=== PATIENT | male | born 1995 | race Caucasian/White ===

== ENCOUNTER 2020-09-17 09:57 | Emergency (ER) | payer OTHER ==
[2020-09-17] MEDS ORDERED: SODIUM CHLORIDE 0.9% 1,000 ML IV STA (10:10)
[2020-09-17] MEDS ORDERED: KETOROLAC 30 MG/ML VIAL IVP STA (10:10)
[2020-09-17] MEDS ORDERED: diphenhydrAMINE INJ 50 MG/ML VIAL IVP STA (10:11)
[2020-09-17] MEDS ORDERED: DEXAMETHASONE 10 MG/ML VIAL IVP STA (10:11)
[2020-09-17] MEDS ORDERED: PROCHLORPERAZINE 10 MG/2 ML VIAL IVP STA (10:11)
--- NOTE | 2020-09-17 10:13 | ED Physician Documentation ---
PD HPI HEADACHE - Stated complaint Stated Complaint: MIGRAINE,BLURRY VISION,NECK PX - Chief complaint Chief Complaint: Neuro - History obtained from History obtained from: Patient - History of Present Illness Timing - onset: Enter time (99), Today Timing - onset during: Rest Timing - duration: Hours Timing - details: Abrupt onset, Still present Worst headache ever?: No: Worst headache ever? Location: Global Quality: Throbbing Associated symptoms: Stiff neck, Nausea, Vomiting, Vision changes. No: Fever, Weakness, Numbness, Syncope, Seizure, Eye pain Improved by: Rest, Dark room, Quiet, Meds Worsened by: Light, Noise Contributing factors: No: Anticoagulated Similar symptoms before: Diagnosis (migraine) Recently seen: Not recently seen - Additional information Additional information: 25-year-old male who has been having some difficulty with migraine recurrent has not had good relief with the use of sumatriptan and and he has not had good relief with the use of topiramate for suppression nor has propranolol seem to help. He has developed nausea and vomiting with this he did have some visual changes. He indicates he is getting headaches about daily and they are not usually this bad. He has developed some vomiting with this he is coming now for treatment. He has had 2 prior migraines treated in the emergency department prior to his diagnosis several years ago. Review of Systems Constitutional: denies: Fever, Chills, Myalgias Eyes: denies: Decreased vision Ears: denies: Ear pain Nose: denies: Rhinorrhea / runny nose, Congestion Throat: denies: Sore throat Cardiac: denies: Chest pain / pressure, Palpitations Respiratory: denies: Dyspnea, Cough GI: reports: Nausea, Vomiting. denies: Abdominal Pain, Constipation, Diarrhea : denies: Dysuria, Frequency Skin: denies: Rash Musculoskeletal: reports: Neck pain. denies: Back pain, Extremity pain Neurologic: reports: Headache. denies: Generalized weakness, Focal weakness, Numbness, Syncope, Seizure, Confused, Altered mental status, Head injury, LOC PD PAST MEDICAL HISTORY - Past Surgical History Past Surgical History: Yes General: Appendectomy - Present Medications Home Medications: Ambulatory Orders Medication Instructions Recorded Confirmed Propranolol [Inderal] 40 mg PO DAILY 09/17/20 09/17/20 - Allergies Allergies/Adverse Reactions: Allergies Allergy/AdvReac Type Severity Reaction Status Date / Time shrimp Allergy Unknown Verified 09/17/20 10:03 - Social History Does the pt smoke?: No Smoking Status: Never smoker Does the pt drink ETOH?: No Does the pt have substance abuse?: No - Immunizations Immunizations are current?: Yes - POLST Patient has POLST: No PD ED PE NORMAL - Vitals Vital signs reviewed: Yes (hypertensive ) - General General: Alert and oriented X 3, No acute distress, Well developed/nourished - HEENT HEENT: Atraumatic, PERRL, EOMI - Neck Neck: Supple, no meningeal sign, No bony TTP - Cardiac Cardiac: RRR, No murmur - Respiratory Respiratory: No respiratory distress, Clear bilaterally - Abdomen Abdomen: Soft, Non tender - Back Back: No CVA TTP, No spinal TTP - Derm Derm: Normal color, Warm and dry, No rash - Extremities Extremities: No deformity, No edema - Neuro Neuro: Alert and oriented X 3, 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, No motor deficit, No sensory deficit, Normal speech Eye Opening: Spontaneous Motor: Obeys Commands Verbal: Oriented GCS Score: 15 - Psych Psych: Normal mood, Normal affect Results - Vitals Vitals: Vital Signs - 24 hr 09/17/20 09/17/20 10:03 10:33 Temperature 36.7 C Heart Rate 56 L 72 Respiratory 18 16 Rate Blood Pressure 149/69 H 127/82 H O2 Saturation 100 97 Oxygen O2 Source Room air - Labs Labs: Laboratory Tests 09/17/20 10:18 WBC 6.6 RBC 5.22 Hgb 15.7 Hct 44.2 MCV 84.7 MCH 30.1 MCHC 35.5 RDW 11.9 L Plt Count 210 MPV 9.3 Neut # (Auto) 3.9 Lymph # (Auto) 1.9 [place] # (Auto) 0.6 Eos # (Auto) 0.1 Baso # (Auto) 0.0 Absolute Nucleated RBC 0.00 Nucleated RBC % 0.0 PD MEDICAL DECISION MAKING - ED course Complexity details: reviewed old records, reviewed results, re-evaluated patient, considered differential, d/w patient ED course: 25-year-old male who is been having some issues with recurrent migraine headache is a migraine that has not responded to his Imitrex and he is vomiting and in pain. He is administered a migraine cocktail consisting of a liter of saline, 10 mg of Compazine, 25 mg of Benadryl, 30 mg of Toradol, and 10 mg of dexamethasone. The patient has improvement in his symptoms but has a side effect of the medication feeling that he is anxious and wants to leave the department immediately.He does have tension in the trapezius bilaterally at the insertion to the occiput and symptoms associated with this. He has significant pain all along the trapezius. I suspect he has a combination of tension and migraine he adache. He has had work-up through [facility] and will be seeing a headache specialist at the [facility]. Departure - Departure Disposition: 01 Home, Self Care Clinical Impression: Tension headache Migraine Qualifiers: Migraine type: with aura Status migrainosus presence: without status migrainosus Intractability: not intractable Qualified Code(s): G43.109 - Migraine with aura, not intractable, without status migrainosus Condition: Stable Instructions: ED Headache Migraine, ED Headache Tension Follow-Up: BRETT GARCIA DO [Primary Care Provider] - Comments: Today you were given a migraine cocktail consisting of saline, Compazine, Benadryl, dexamethasone and Toradol. I suspect the reaction you had wanting to leave the department immediately is related to the use of the Compazine.
[2020-09-17 10:31] LABS: BASOPHILS % (AUTO) 0.6 %; EOSINOPHILS # (AUTO) 0.1 10^3/uL (0.0-0.7); EOSINOPHILS % (AUTO) 2.1 %; HGB - HEMOGLOBIN 15.7 g/dL (14.0-18.0); LYMPHOCYTES # (AUTO) 1.9 10^3/uL (1.5-3.5); LYMPHOCYTES % (AUTO) 29.2 %; MEAN CORPUSCULAR HEMOGLOBIN 30.1 pg (27.0-31.0); MEAN CORPUSCULAR HGB CONC 35.5 g/dL (32.0-36.0); MEAN CORPUSCULAR VOLUME 84.7 fL (80.0-94.0); MEAN PLATELET VOLUME 9.3 fL (7.4-11.4); MONOCYTES # (AUTO) 0.6 10^3/uL (0.0-1.0); MONOCYTES % (AUTO) 8.8 %; NEUTROPHILS # (AUTO) 3.9 10^3/uL (1.5-6.6); PLT - PLATELET COUNT 210 10^3/uL (130-450); RED BLOOD COUNT 5.22 10^6/uL (4.70-6.10); RED CELL DISTRIBUTION WIDTH 11.9 % (12.0-15.0); WHITE BLOOD COUNT 6.6 x10^3/uL (4.8-10.8)
[2020-09-17 10:48] LABS: ALBUMIN 4.3 g/dL (3.2-5.5); ALBUMIN/GLOBULIN RATIO 1.5 (1.0-2.2); BILIRUBIN,TOTAL 0.8 mg/dL (0.2-1.0); CALCIUM 8.8 mg/dL (8.5-10.3); CREATININE 0.8 mg/dL (0.6-1.2); TOTAL PROTEIN 7.2 g/dL (6.7-8.2)
[2020-09-17 11:07] VITALS: BP 138/74
== END 2020-09-17 11:07 | disposition home or self-care (01) ==
LOC: ED 09:57
DX: G43.109 Migraine with aura, not intractable, without status migrainosus (principal); G44.209 Tension-type headache, unspecified, not intractable; F41.9 Anxiety disorder, unspecified; T43.3X5A Adverse effect of phenothiazine antipsychotics and neuroleptics, initial encounter; Y92.238 Other place in hospital as the place of occurrence of the external cause
CPT/HCPCS: 36415; 80053; 83690; 85025; 96374; 96375; 99284; 99285; J1200

== ENCOUNTER 2021-02-01 12:34 | Emergency (ER) | payer OTHER ==
[2021-02-01] MEDS ORDERED: ONDANSETRON ODT 4 MG TABLET TL STA (13:24)
--- NOTE | 2021-02-01 13:26 | ED Physician Documentation ---
History of Present Illness - Stated complaint Stated Complaint: HEAD PX/NAUSEA - Chief complaint Chief Complaint: Neuro - History obtained from History obtained from: Patient - Additonal information Additional information: Patient comes emergency department chief complaint of flareup of migraine headache. Patient has a longstanding history of chronic migraines, and has been seen on and off by neurology for this. 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 The patient states that he has not had any fevers or chills lately. No recent head injury. No other complaints at this time. He states he can handle the pain, and usually takes sumatriptan at home for this, but the main thing that is bothering him is his nausea and he would like to get something for that. Review of Systems Ten Systems: 10 systems reviewed and negative Constitutional: reports: Reviewed and negative Eyes: reports: Reviewed and negative Ears: reports: Reviewed and negative Nose: reports: Reviewed and negative Throat: reports: Reviewed and negative Cardiac: reports: Reviewed and negative Respiratory: reports: Reviewed and negative GI: reports: Nausea, Vomiting : reports: Reviewed and negative Skin: reports: Reviewed and negative Musculoskeletal: reports: Neck pain (L lateral), Reviewed and negative Neurologic: reports: Headache (With photophobia.) Psychiatric: reports: Reviewed and negative Endocrine: reports: Reviewed and negative Immunocompromised: reports: Reviewed and negative PD PAST MEDICAL HISTORY - Past Medical History Neuro: Migraines - Past Surgical History Past Surgical History: Yes General: Appendectomy - Present Medications Home Medications: Ambulatory Orders Medication Instructions Recorded Confirmed Propranolol [Inderal] 40 mg PO DAILY 09/17/20 09/17/20 Ondansetron Odt [Zofran] 4 mg TL Q6H PRN #10 tablet 02/01/21 - Allergies Allergies/Adverse Reactions: Allergies Allergy/AdvReac Type Severity Reaction Status Date / Time shrimp Allergy Unknown Verified 02/01/21 12:46 - Social History Does the pt smoke?: No Smoking Status: Never smoker Does the pt drink ETOH?: No Does the pt have substance abuse?: No - Immunizations Immunizations are current?: Yes - POLST Patient has POLST: No PD ED PE NORMAL - Vitals Vital signs reviewed: Yes - General General: Alert and oriented X 3, No acute distress, Well developed/nourished - HEENT HEENT: Atraumatic, PERRL, EOMI, Moist mucous membranes - Neck Neck: Supple, no meningeal sign, Other (Mild tenderness left lateral neck musculature.) - Cardiac Cardiac: RRR, No murmur - Respiratory Respiratory: No respiratory distress, Clear bilaterally - Abdomen Abdomen: Soft, Non tender, Non distended - Derm Derm: Normal color, Warm and dry, No rash - Extremities Extremities: No deformity, No edema, No calf tenderness / cord - Neuro Neuro: Alert and oriented X 3, 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 I have given him a work note. We have discussed home management of symptoms, as well as the usual indications for return. Departure - Departure Disposition: 01 Home, Self Care Clinical Impression: Cervical paraspinal muscle spasm Migraine Qualifiers: Migraine type: unspecified Status migrainosus presence: without status migrainosus Intractability: not intractable Qualified Code(s): G43.909 - Migraine, unspecified, not intractable, without status migrainosus Condition: Stable Instructions: ED Headache Migraine Prescriptions: Ondansetron Odt [Zofran] 4 mg TL Q6H PRN #10 tablet PRN Reason: Nausea / Vomiting Forms: Activity restrictions
[2021-02-01 13:41] VITALS: BP 137/85
== END 2021-02-01 13:50 | disposition home or self-care (01) ==
LOC: ED 12:34
DX: G43.909 Migraine, unspecified, not intractable, without status migrainosus (principal); R42 Dizziness and giddiness; M62.838 Other muscle spasm; M54.2 Cervicalgia
CPT/HCPCS: 99282; 99283; Q0162